=== PATIENT | male | born 2000 | race Caucasian/White ===

== ENCOUNTER 2021-09-30 19:31 | Emergency (ER) | payer BC ==
[2021-09-30] MEDS ORDERED: Fluconazole 100 MG Tab PO ONE (20:21)
== END 2021-09-30 21:22 | disposition home or self-care (01) ==
LOC: JD.ED 19:31
DX: R07.89 Other chest pain (principal); B37.0 Candidal stomatitis; K21.9 Gastro-esophageal reflux disease without esophagitis; Z88.1 Allergy status to other antibiotic agents; Z79.899 Other long term (current) drug therapy; Z72.0 Tobacco use
CPT/HCPCS: 36415; 71045; 80053; 84484; 85025; 85379; 85610; 93005; 99285; A9270; 93010